=== PATIENT | female | born 2000 | race Caucasian/White ===

== ENCOUNTER 2020-10-22 10:04 | Emergency (ER) | payer SELFPAY ==
[~2020-10-22] VITALS: Ht 167.6 cm; Wt 100.0 kg
--- NOTE | 2020-10-22 10:58 | PHYS DOC ---
Past Medical History Past Medical History: No Pertinent History Past Surgical History: No Surgical History Smoking Status: Never Smoker Alcohol Use: None General Adult EDM: Chief Complaint: DIZZY/LIGHT HEADED HPI: HPI: Patient is a 20 year old female who presented to ER with abdominal cramping, pelvic cramping, nausea, dizziness since this morning. Patient denies any chest pain, no trouble breathing, no cough, no fever. Patient denies any headache. Patient states she is 14 weeks her last menstrual period for on July 23 of last year. This is her first . Patient denies any vaginal bleeding. Patient had not have any care yet. Review of Systems: Review of Systems: Constitutional: Denies fever or chills. [] Eyes: Denies change in visual acuity. [] HENT: Denies nasal congestion or sore throat. [] Respiratory: Denies cough or shortness of breath. [] Cardiovascular: Denies chest pain or edema. [] GI: Positive for low abdominal pain, nausea, no vomiting, no diarrhea. : Denies dysuria. [] Musculoskeletal: Denies back pain or joint pain. [] Integument: Denies rash. [] Neurologic: Denies headache, focal weakness or sensory changes. [] Endocrine: Denies polyuria or polydipsia. [] Lymphatic: Denies swollen glands. [] Psychiatric: Denies depression or anxiety. [] Heart Score: C/O Chest Pain: N/A Risk Factors: Risk Factors: DM, Current or recent (<one month) smoker, HTN, HLP, family history of CAD, obesity. Risk Scores: Score 0 - 3: 2.5% MACE over next 6 weeks - Discharge Home Score 4 - 6: 20.3% MACE over next 6 weeks - Admit for Clinical Observation Score 7 - 10: 72.7% MACE over next 6 weeks - Early Invasive Strategies Current Medications: Current Medications Medications (Trade) Dose Ordered Sig/Tracey Start Time Stop Time Status Last Admin Dose Admin Sodium Chloride 1,000 ml @ 1,000 mls/hr 1X ONCE 10/22/20 11:00 10/22/20 11:59 Allergies: Allergies: Allergies Coded Allergies Type Severity Reaction Last Updated Verified No Known Drug Allergies 10/22/20 No Physical Exam: PE: Constitutional: Well developed, well nourished, no acute distress, non-toxic appearance. [] HENT: Normocephalic, atraumatic, bilateral external ears normal, oropharynx moist, no oral exudates, nose normal. [] Eyes: PERRLA, EOMI, conjunctiva normal, no discharge. [] Neck: Normal range of motion, no tenderness, supple, no stridor. [] Cardiovascular:Heart rate regular rhythm, no murmur [] Lungs & Thorax: Bilateral breath sounds clear to auscultation [] Abdomen: Bowel sounds normal, soft, no tenderness, no masses, no pulsatile masses. [] Skin: Warm, dry, no erythema, no rash. [] Back: No tenderness, no CVA tenderness. [] Extremities: No tenderness, no cyanosis, no clubbing, ROM intact, no edema. [] Neurologic: Alert and oriented X 3, normal motor function, normal sensory function, no focal deficits noted. [] Psychologic: Affect normal, judgement normal, mood normal. [] Current Patient Data: Labs: Laboratory Tests Test 10/22/20 10:24 10/22/20 10:40 Urine Collection Type U cath Urine Color Yellow Urine Clarity Cloudy Urine pH 7.0 Urine Specific Dixon 1.025 Urine Protein Negative mg/dL Urine Glucose (UA) Negative mg/dL Urine Ketones (Stick) Negative mg/dL Urine Blood Large Urine Nitrite Positive Urine Bilirubin Negative Urine Urobilinogen Dipstick 1.0 mg/dL Urine Leukocyte Esterase Negative Urine RBC 11-20 /HPF Urine WBC 1-4 /HPF Urine Bacteria Moderate /HPF White Blood Count 10.0 x10^3/uL Red Blood Count 4.92 x10^6/uL Hemoglobin 13.3 g/dL Hematocrit 39.1 % Mean Corpuscular Volume 80 fL Mean Corpuscular Hemoglobin 27 pg Mean Corpuscular Hemoglobin Concent 34 g/dL Red Cell Distribution Width 12.7 % Platelet Count 265 x10^3/uL Neutrophils (%) (Auto) 74 % Lymphocytes (%) (Auto) 19 % Monocytes (%) (Auto) 5 % Eosinophils (%) (Auto) 2 % Basophils (%) (Auto) 0 % Neutrophils # (Auto) 7.4 x10^3/uL Lymphocytes # (Auto) 1.9 x10^3/uL Monocytes # (Auto) 0.5 x10^3/uL Eosinophils # (Auto) 0.2 x10^3/uL Basophils # (Auto) 0.0 x10^3/uL Maternal Serum HCG Beta Subunit 99639 mIU/mL Sodium Level 136 mmol/L Potassium Level 4.3 mmol/L Chloride Level 103 mmol/L Carbon Dioxide Level 23 mmol/L Anion Gap 10 Blood Urea Nitrogen 9 mg/dL Creatinine 0.6 mg/dL Estimated GFR (Cockcroft-Gault) 126.2 BUN/Creatinine Ratio 15 Glucose Level 100 mg/dL Calcium Level 9.0 mg/dL Magnesium Level 1.9 mg/dL Total Bilirubin 0.3 mg/dL Aspartate Amino Transf (AST/SGOT) 18 U/L Alanine Aminotransferase (ALT/SGPT) 41 U/L Alkaline Phosphatase 86 U/L Total Protein 7.0 g/dL Albumin 3.4 g/dL Albumin/Globulin Ratio 0.9 Current Medications Medications (Trade) Dose Ordered Sig/Tracey Route PRN Reason Start Time Stop Time Status Last Admin Dose Admin Sodium Chloride 1,000 ml @ 1,000 mls/hr 1X ONCE IV 10/22/20 11:00 10/22/20 11:59 DC 10/22/20 11:16 Ceftriaxone Sodium (Rocephin) 1 gm 1X ONCE IVP 10/22/20 12:00 10/22/20 12:01 DC 10/22/20 11:53 Vital Signs: Vital Signs Date Time Temp Pulse Resp B/P (MAP) Pulse Ox O2 Delivery O2 Flow Rate FiO2 10/22/20 10:45 98.1 75 16 134/79 (97) 97 Room Air 98.1 EKG: EKG: [] Radiology/Procedures: Radiology/Procedures: [][facility] [address] [place] [address] IMAGING REPORT Signed PATIENT: SKIP PARDO MACCOUNT: [id number] : 2000 LOCATION: ER AGE: 20 SEX: F EXAM STATUS: REG ER ORD. PHYSICIAN: ROWENA SMITH DO REASON: pelvic pain, 14 weeks PROCEDURE: PREG 1ST TRIMESTER OB ultrasound less than 14 weeks HISTORY: 14 weeks and pelvic pain Sonographic examination appearance was performed by transabdominal technique. Multiple static images were obtained. There is a single live intrauterine . The heartbeat is confirmed at 150 beats per minute. Visualization of structures is limited at this early gestational age. The LMP of 07/18/2020 corresponds with 13 week 5 day gestational age and estimated confinement of April 24, 2021. Estimated size by ultrasound is 14 weeks 2 days estimated date of confinement April 20, 2021. The measurements as follows: BPD 2.6 centers 14 weeks 3 days Head circumference 9.8 cm 14 weeks 4 days Abdominal discomfort 7.9 cm 14 weeks 2 days Femur length 1.4 centers 14 weeks 0 days There is a posterior placenta. The ovaries appear normal normal blood flow. The right ovary measures 2.8 x 1.8 x 1.7 cm. The left ovary measures 3.1 x 1.9 x 1.9 cm. IMPRESSION: 1. Single live intrauterine at 13 weeks 5 days gestational age by LMP has appropriate size by ultrasound. 2. No abnormality identified. A short-term follow-up ultrasound could be performed if clinically indicated otherwise a structural survey would be performed at 18-21 weeks gestational age. Electronically signed by: Mayank Bennett III, MD (10/22/2020 12:19 PM) [id number] DICTATED and SIGNED BY: MAYANK BENNETT III, MD DATE: 10/22/20 [id number] 0 Course & Med Decision Making: Course & Med Decision Making Pertinent Labs and Imaging studies reviewed. (See chart for details) [] Dragon Disclaimer: Dragon Disclaimer: This electronic medical record was generated, in whole or in part, using a voice recognition dictation system. Departure Departure Impression: Primary Impression: UTI (urinary tract infection) Additional Impressions: Abdominal pain Disposition: 01 DC HOME SELF CARE/HOMELESS Condition: IMPROVED Referrals: NOVA RAMIREZ Jr, MD PLEASE CALL THIS [employer] DOCTOR FOR CARE NEXT WEEK Patient Instructions: Abdominal Pain During , Urinary Tract Infection Additional Instructions: Thank you for visiting our Emergency Department. We appreciate you trusting us with your care. If any additional problems come up don't hesitate to return to visit us. Please follow up with your primary care provider so they can plan additional care if needed and know about the problem that you had. If symptoms worsen come back to the Emergency Department. Any concerning symptoms that start such as chest pain, shortness of air, weakness or numbness on one side of the body, running high fevers or any other concerning symptoms return to the ER. Scripts Cephalexin (CEPHALEXIN) 500 Mg Tablet 1 TAB PO QID for 10 Days, #40 TAB Prov: ROWENA SMITH DO 10/22/20 ROWENA SMITH DO Oct 22, 2020 10:58
[2020-10-22] MEDS ORDERED: IV NORMAL SALINE 1000ML BAG 1,000 ML IV ONE (11:00)
[2020-10-22 11:01] LABS: BASO % 0 % (0-3); EOS # 0.2 x10^3/uL (0.0-0.7); EOS % 2 % (0-3); HEMATOCRIT 39.1 % (36.0-47.0); HEMOGLOBIN 13.3 g/dL (12.0-15.5); LYMPH # 1.9 x10^3/uL (1.0-4.8); LYMPH % 19 % (24-48); MEAN CORPUSCULAR HEMOGLOBIN 27 pg (25-35); MEAN CORPUSCULAR HGB CONC 34 g/dL (31-37); MEAN CORPUSCULAR VOLUME 80 fL (79-100); MONO # 0.5 x10^3/uL (0.0-1.1); MONO % 5 % (0-9); NEUT # 7.4 x10^3/uL (1.8-7.7); NEUT % 74 % (31-73); PLATELET COUNT 265 x10^3/uL (140-400); RED BLOOD COUNT 4.92 x10^6/uL (3.50-5.40); RED CELL DISTRIBUTION WIDTH 12.7 % (11.5-14.5)
[2020-10-22 11:03] LABS: BILIRUBIN,URINE NEGATIVE (NEG); CLARITY,URINE CLOUDY; COLOR,URINE YELLOW; NITRITE,URINE POSITIVE (NEG); PROTEIN,URINE NEGATIVE (NEG-TRACE)
[2020-10-22 11:14] LABS: BACTERIA,URINE MODERATE /HPF (0-FEW)
[2020-10-22 11:25] LABS: CREATININE 0.6 mg/dL (0.6-1.0); GFR 126.2; POTASSIUM 4.3 mmol/L (3.5-5.1)
[2020-10-22 11:27] LABS: ALBUMIN 3.4 g/dL (3.4-5.0); ALBUMIN/GLOBULIN RATIO 0.9 (1.0-1.7); MAGNESIUM 1.9 mg/dL (1.8-2.4); TOTAL BILIRUBIN 0.3 mg/dL (0.2-1.0)
[2020-10-22] MEDS ORDERED: cefTRIAXone IV Push 1 GM VIAL. IVP ONE (12:00)
--- NOTE | 2020-10-22 12:22 | RAD ---
OB ultrasound less than 14 weeks HISTORY: 14 weeks and pelvic pain Sonographic examination appearance was performed by transabdominal technique. Multiple static images were obtained. There is a single live intrauterine . The heartbeat is confirmed at 150 beats per minute. Vi sualization of structures is limited at this early gestational age. The LMP of 07/18/2020 corresponds with 13 week 5 day gestational age and [facility]. Estimated size by ultrasound is 14 weeks 2 days estimated date of confinement [facility] 2020. The measurements as follows: BPD 2.6 centers 14 weeks 3 days Head circumference 9.8 cm 14 weeks 4 days Abdominal discomfort 7.9 cm 14 weeks 2 days Femur length 1.4 centers 14 weeks 0 days There is a posterior placenta. The ovaries appear normal normal blood flow. The right ovary measures 2.8 x 1.8 x 1.7 cm. The left ovary measures 3.1 x 1.9 x 1.9 cm. IMPRESSION: 1. Single live intrauterine at 13 weeks 5 days gestational age by LMP has appropriate size by ultrasound. 2. No abnormality identified. A short-term follow-up ultrasound could be performed if clinically fatmata cated otherwise a structural survey would be performed at 18-21 weeks gestational age. Electronically signed by: Ismael Callejas III, MD (10/22/2020 12:19 PM) [id number]
[2020-10-22 13:13] VITALS: BP 135/58
[2020-10-22] MEDS ORDERED: CEPH500T PO (13:30)
== END 2020-10-22 13:40 | disposition home or self-care (01) ==
LOC: ER 10:04
DX: O23.41 Unspecified infection of urinary tract in pregnancy, first trimester (principal); R10.30 Lower abdominal pain, unspecified; R42 Dizziness and giddiness; Z3A.13 13 weeks gestation of pregnancy
CPT/HCPCS: 36415; 76801; 80053; 81001; 83735; 84702; 85025; 86900; 86901; 87086; 96361; 96374; 99285; J0696; J7030